=== PATIENT | male | born 1970 | race Caucasian/White ===

== ENCOUNTER 2017-01-03 23:05 | Emergency (ER) | payer OTHER ==
--- NOTE | ~2017-01-03 | CR172 ---
[facility] A Service of [facility] & [facility] RADIOLOGY TEXT RESULTS PATIENT: JALYAN BLANCO LOCATION: [facility] : 74 UNIT #: [id number] AGE: [address]: JAYLAN CUELLO APRN SEX: M ORDER DR: [id number] [facility] [address] [place], [place] [address] [id number] E MR#: [id number] Acc #: [id number] NAME: JAYLAN BLANCO : 1970 SEX: M STUDY DATE/TIME: 01/03/2017 22:41 UNIT: [facility] ROOM: STUDY DESCRIPTION: CR Knee 3 Views Lt Attending Physician: Jaylan Cuello Aprn Ordering Physician: Jaylan Cuello Aprn Primary Care Physician: Lacey Nieto M.D. MEDICAL IMAGING REPORT This report is preliminary unless electronic signature is present EXAM Left knee series INDICATION Left knee pain for the past 2 days. PROCEDURE 3 views of the left knee. COMPARISON None. FINDINGS No acute fracture or dislocation. IMPRESSION No acute findings. Dictated by... Angelo Mcmillan M.D. THIS IS AN ELECTRONICALLY VERIFIED REPORT Angelo Mcmillan M.D. at 01/07/2017 7:30 AM MARYELLEN/jonathon TD: 01/04/2017 03:28 JOB #: [id number] MEDICAL IMAGING REPORT Page 1 of 1 COPY
--- NOTE | ~2017-01-03 | CR181 ---
[facility] A Service of [facility] RADIOLOGY TEXT RESULTS PATIENT: JAYLAN BLANCO LOCATION: [facility] : 74 UNIT #: [id number] AGE: [address]: JAYLAN CUELLO APRN SEX: M ORDER DR: [id number] [address] [address] [id number] E MR#: [id number] Acc #: [id number] NAME: JAYLAN BLANCO : 1970 SEX: M STUDY DATE/TIME: 01/03/2017 22:43 UNIT: [facility] ROOM: STUDY DESCRIPTION: CR Lumbar Spine 2 or 3 Views Attending Physician: Jaylan Cuello Aprn Ordering Physician: Jaylan Cuello Aprn Primary Care Physician: Lacey Nieto M.D. MEDICAL IMAGING REPORT This report is preliminary unless electronic signature is present EXAM Lumbar spine series INDICATION Back pain. Lower back pain for the past 2 days. PROCEDURE 3 views lumbar spine. COMPARISON None. FINDINGS Lumbar bodies have normal height, alignment preserved. Mild multilevel degenerative change. Sacroiliac joints are symmetric. IMPRESSION 1. No acute findings. 2. Mild multilevel degenerative disc disease. Dictated by... Angelo Mcmillan M.D. THIS IS AN ELECTRONICALLY VERIFIED REPORT Angelo Mcmillan M.D. at 01/07/2017 7:30 AM EED/jonathon TD: 01/04/2017 03:29 JOB #: [id number] [facility] A Service of [facility] RADIOLOGY TEXT RESULTS PATIENT: JAYLAN BLANCO LOCATION: [facility] : 74 UNIT #: [id number] AGE: [address]: JAYLAN CUELLO APRN SEX: M ORDER DR: MEDICAL IMAGING REPORT Page 1 of 1 COPY
== END 2017-01-04 00:21 | disposition home or self-care (01) ==
LOC: CFTX 23:05
DX: S33.5XXA Sprain of ligaments of lumbar spine, initial encounter (principal); M25.562 Pain in left knee; I10 Essential (primary) hypertension; V49.50XA Passenger injured in collision with unspecified motor vehicles in traffic accident, initial encounter; Y92.488 Other paved roadways as the place of occurrence of the external cause
CPT/HCPCS: 72100; 73562; 99284